=== PATIENT | female | born 1945 | race Caucasian/White ===

== ENCOUNTER 2020-02-09 00:59 | Outpatient (CLI) | payer MEDICARE, BC, SELFPAY ==
[2020-02-09 18:04] LABS: SARS-CoV-2 RNA PCR Negative
== END 2020-02-09 01:00 | disposition home or self-care (01) ==
LOC: ANHCOVIDDT 00:59
PROVIDERS: PCP Internal Medicine; Visit Provider Internal Medicine Gastroenterology
DX: Z01.812 Encounter for preprocedural laboratory examination (principal); Z20.828 Contact with and (suspected) exposure to other viral communicable diseases
CPT/HCPCS: 87635; C9803; U0003

== ENCOUNTER 2020-02-12 00:42 | Day surgery (SDC) | payer MEDICARE, BC, SELFPAY ==
[2020-02-05 14:51] VITALS: BMI 30.9
[2020-02-12 06:58] VITALS: BP 155/78; PULSE 87; RESP 12; TEMP 36.8; O2SAT 99; BMI 31.7
[2020-02-12] MEDS: LACTATED RINGERS 1,000 ML 150 ML IV CONT (07:04)
[2020-02-12 07:05] LABS: Glucose Point of Care 129 (65-105)
--- NOTE | 2020-02-12 07:24 | PM.HPGS ---
History of Present Illness History of Present Illness Consent: Risks, benefits, and alternatives have been discussed and questions answered. Patient agrees to proceed with procedure. Chief complaint: Neoplasm Screening Narrative: Vera Olivares is a 74 year old female Here for colon cancer screening. [facility] Past Medical History Medical History (Updated 02/12/20 @ 07:26 by Lopez Bergman MD) CAD (coronary artery disease) had cath done, no blockages Diabetes Hyperlipidemia Hypertension Hypothyroid Social History Social History Smoking status: Never smoker Alcohol intake: current Drinks per week: 0 Alcohol use details: 1 OR 2 DRINKS PER YEAR Substance use: never Substance use type: does not use Spiritual care concerns: No Meds Home Medications and Allergies Home Medications Medication Instructions Recorded Confirmed Type ascorbate calcium (vitamin C) 500 mg PO DAILY 02/05/20 02/12/20 History aspirin [Adult Low Dose Aspirin] 81 mg PO DAILY 02/05/20 02/12/20 History calcium carbonate [Caltrate 600] 600 mg PO DAILY 02/05/20 02/12/20 History cholecalciferol (vitamin D3) 50 mcg PO DAILY 02/05/20 02/12/20 History [Vitamin D3] glimepiride 4 mg PO DAILY 02/05/20 02/12/20 History levothyroxine 75 mcg PO DAILY 02/05/20 02/12/20 History lisinopril 40 mg PO DAILY 02/05/20 02/12/20 History metformin 1,000 mg PO BID 02/05/20 02/12/20 History pqhhcjcc-moa-pcee-FA-lutein 1 tablet PO DAILY 02/05/20 02/12/20 History [Centrum Silver Women] pravastatin 80 mg PO HS 02/05/20 02/12/20 History Allergies Allergy/AdvReac Type Severity Reaction Status Date / Time ibuprofen Allergy Mild INCREASE Verified 02/12/20 06:56 KIDNEY LEVELS Vital Signs Vital Signs - 24 hr 02/12/20 06:58 Temperature 36.8 C Pulse Rate 87 Respiratory Rate 12 Blood Pressure 155/78 H Pulse Oximetry 99 Exam Resp: Auscultation: clear to auscultation bilaterally Cardio: Rate: regular rate Rhythm: regular rhythm GI: GI Palp: Yes Soft to palpation and No Tenderness to palpation present (GI) Assessment and Plan Assessment and plan (1) Colon cancer screening: Code(s): Z12.11 - Encounter for screening for malignant neoplasm of colon Status: Acute Assessment and Plan: Colonoscopy with possible biopsy or polypectomy or cautery or injection of substances.
--- NOTE | 2020-02-12 07:25 | WPDANESEPPF ---
Anes - Initial Pre Proc Eval Procedure: Operation Date: 02/12/20 08:00 Proposed Procedures p Screening Colonoscopy - Lopez Bergman MD Date/Time: 02/12/20 07:25 Surgeon: Lopez Bergman MD Pre Op Diagnosis: Neoplasm Screening Patient Data Age: 74 Gender: F Height: 5 ft 4 in Weight: 83.8 kg Last Vital Signs Temp 98.2 F 02/12/20 06:58 Pulse 87 02/12/20 06:58 Resp 12 02/12/20 06:58 BP 155/78 H 02/12/20 06:58 Pulse Ox 99 02/12/20 06:58 Allergies Allergy/AdvReac Type Severity Reaction Status Date / Time ibuprofen Allergy Mild INCREASE Verified 02/12/20 06:56 KIDNEY LEVELS Home Medications Medication Instructions Recorded Confirmed Type ascorbate calcium (vitamin C) 500 mg PO DAILY 02/05/20 02/12/20 History aspirin [Adult Low Dose Aspirin] 81 mg PO DAILY 02/05/20 02/12/20 History calcium carbonate [Caltrate 600] 600 mg PO DAILY 02/05/20 02/12/20 History cholecalciferol (vitamin D3) 50 mcg PO DAILY 02/05/20 02/12/20 History [Vitamin D3] glimepiride 4 mg PO DAILY 02/05/20 02/12/20 History levothyroxine 75 mcg PO DAILY 02/05/20 02/12/20 History lisinopril 40 mg PO DAILY 02/05/20 02/12/20 History metformin 1,000 mg PO BID 02/05/20 02/12/20 History qrjrrkos-nla-sgwr-FA-lutein 1 tablet PO DAILY 02/05/20 02/12/20 History [Centrum Silver Women] pravastatin 80 mg PO HS 02/05/20 02/12/20 History Laboratory Tests 02/12/20 06:55 POC Capillary Glucose 129 mg/dl H mg/dl (65-105) Patient hx anesthesia problems: none Family hx anesthesia problems: none PMFSH Past Medical History Medical History (Updated 02/12/20 @ 07:26 by Lopez Bergman MD) CAD (coronary artery disease) had cath done, no blockages Diabetes Hyperlipidemia Hypertension Hypothyroid Social History Social History Smoking status: Never smoker Alcohol intake: current Drinks per week: 0 Alcohol use details: 1 OR 2 DRINKS PER YEAR Substance use: never Substance use type: does not use Spiritual care concerns: No Anes - Eval Final PreProcedure Day of Procedure 02/12/20 07:25 Patient weight: overweight Heart: regular rate and rhythm Lungs: clear to auscultation Airway: Mallampati scale class II Neurological: alert and oriented Last oral intake: >/= 8 hours ASA classification: III Emergent: no Anesthetic plan: proceed Anesthesia type and monitoring: general GIVS and standard monitoring Informed Consent: The patient's anesthetic plan and its attendant risks and benefits were discussed with the patient/family/POA. Questions were solicited and answers provided to the satisfaction of the patient/family/POA.
[2020-02-12 08:08] VITALS: BP 106/51; PULSE 76; RESP 27; O2SAT 98
[2020-02-12 08:18] VITALS: BP 131/66; PULSE 76; RESP 26; O2SAT 98
[2020-02-12 08:28] VITALS: BP 134/65; PULSE 83; RESP 20; O2SAT 98
== END 2020-02-12 08:41 | disposition home or self-care (01) ==
PROVIDERS: PCP Internal Medicine; Visit Provider Internal Medicine Gastroenterology
PROC: 0DJD8ZZ Inspection of Lower Intestinal Tract, Via Natural or Artificial Opening Endoscopic (ICD-10-PCS; CPT 45378; principal; 2020-02-12 08:00)
DX: Z12.11 Encounter for screening for malignant neoplasm of colon (principal); K57.30 Diverticulosis of large intestine without perforation or abscess without bleeding; I10 Essential (primary) hypertension; I25.10 Atherosclerotic heart disease of native coronary artery without angina pectoris; E78.5 Hyperlipidemia, unspecified; E11.9 Type 2 diabetes mellitus without complications; E03.9 Hypothyroidism, unspecified; Z79.82 Long term (current) use of aspirin; Z79.84 Long term (current) use of oral hypoglycemic drugs
CPT/HCPCS: G0121; J2704; J7120

== ENCOUNTER 2023-06-22 07:36 | Outpatient (CLI) | payer MEDICARE, BC, SELFPAY ==
--- NOTE | ~2023-06-22 | DEXA_ITS ---
Bone Density Report Name: TAMMI NAJERA Age: 77 Sex: Female Ethnicity: White Date of : 1945 Indication: postmenopausal; screening for osteoporosis; height loss; end stage renal disease; hysterectomy; Referring Provider: SUSAN WALLACE Study: Bone densitometry was performed. Exam Date: June 22, 2023 Accession number: [id number] Bone Density: Region BMD T-score Z-score Classification AP Spine(L1-L4) 1.219 1.6 4.1 Normal Femoral Neck (Left) 0.616 -2.1 0.1 Osteopenia Total Hip (Left) 0.737 -1.7 0.2 Osteopenia Femoral Neck (Right) 0.663 -1.7 0.5 Osteopenia Total Hip (Right) 0.765 -1.4 0.4 Osteopenia Total Hip Mean 0.751 -1.6 0.3 Osteopenia World Health Organization criteria for BMD impression classify patients as: Normal (T-score at or above -1.0), Osteopenia (T-score between -1.0 and -2.5), or Osteoporosis (T-score at or below -2.5). 10-year Fracture Risk: FRAX not reported because: Treated for osteoporosis Clinical Information Provided by Patient: Is being treated for osteoporosis Has used the following medications: Fosamax (i.e. alendronate), Vitamin D Has the following medical conditions: End stage renal disease, Hysterectomy Patient maximum height was 66 Menopause Age: 52 No regular weight bearing exercise Drinks caffeinated beverages Onset of menses at age 14 Number of children 2 Impression: The patient has low bone mass, based on the Left Femoral Neck T-score. Discussion: It is important to ask patients whether they are taking their medications and to encourage continued and appropriate compliance with their osteoporosis therapies to reduce fracture risk. It is also important to review their risk factors and encourage appropriate calcium and vitamin D intakes, exercise, fall prevention and other lifestyle measures. Follow-Up: Consider a repeat BMD and Vertebral Fracture Assessment (VFA) exam in 2 years or sooner if medically necessary, to reassess this patient's status. Reported by: MILLY on 06/22/2023 8:03:00 AM. Reviewed, dictated and finalized at location [facility]
== END 2023-06-22 07:37 | disposition home or self-care (01) ==
PROVIDERS: PCP Internal Medicine; Visit Provider Obstetrics & Gynecology
DX: M85.89 Other specified disorders of bone density and structure, multiple sites (principal); M81.0 Age-related osteoporosis without current pathological fracture; Z13.820 Encounter for screening for osteoporosis
CPT/HCPCS: 77080

== ENCOUNTER 2024-01-02 13:50 | Outpatient (CLI) | payer MEDICARE, BC, SELFPAY ==
--- NOTE | 2024-01-02 15:15 | ECG_ITS ---
Test Date: 2024-01-02 15:46:12 Measurements Intervals [place] Rate: 72 P: 74 IA: 153 QRS: -8 QRSD: 91 T: 11 QT: 390 QTc: 427 Interpretive Statements SINUS RHYTHM BORDERLINE T WAVE ABNORMALITY- INFERIOR LEADS BASELINE ARTIFACT- I, II, III, AVR, AVL, AVF, V1-V6 BORDERLINE ECG No previous ECG available for comparison Electronically Signed On 01-02-2024 20:01:04 CDT by Colton Joseph D.O.
[2024-01-02 16:19] LABS: Basophils Percent Auto 0.5 % (0.2-1.2); Eosinophils Absolute Auto 0.2 K/mm3 (0-0.3); Eosinophils Percent Auto 2.4 % (0-4.4); Hematocrit 42.2 % (37.0-47.0); Hemoglobin 13.3 g/dL (12.0-15.0); Immature Granulocyte Absolute 0.01 K/mm3 (0.00-0.031); Immature Granulocyte Percent A 0.2 % (0-0.5); Lymphocytes Absolute Auto 2.54 K/mm3 (0.9-3.2); Lymphocytes Percent Auto 38.5 % (18.3-44.2); Mean Corpuscular HGB Conc 31.5 g/dl (32-36); Mean Corpuscular Hemoglobin 30.6 pg (26-34); Mean Platelet Volume 9.3 fl (7.4-10.4); Monocytes Absolute Auto 0.5 K/mm3 (0.1-0.6); Monocytes Percent Auto 7.4 % (2.6-8.5); Neutrophils Absolute Auto 3.4 K/mm3 (1.3-6.7); Platelet Count Result 208 k/mm3 (150-375); Red Blood Count 4.35 M/mm3 (4.2-5.4); Red Cell Distribution Width 12.8 % (11.5-14.5); White Blood Count 6.6 K/mm3 (4.5-10.0)
[2024-01-02 16:27] LABS: Urine Cotinine NEGATIVE
[2024-01-02 16:32] LABS: Albumin Level 4.6 g/dL (3.5-5.1); Anion Gap 12 mmol/L (4-12); Blood Urea Nitrogen 26 mg/dL (7-17); Calcium 9.8 mg/dL (8.4-10.2); Carbon Dioxide 26 mmol/L (22-30); Chloride 103 mmol/L (98-107); Estimated Glomerular Filt Rate 44; Glucose 98 mg/dL (65-110); Potassium 4.5 mmol/L (3.4-5.0); Sodium 141 mmol/L (137-145)
[2024-01-02 16:36] LABS: INR 0.9; Prothrombin Time 12.6 Seconds (11.1-14.7)
[2024-01-02 16:37] LABS: Partial Thromboplastin Time 25.5 Seconds (22.3-36.8)
[2024-01-02 18:18] LABS: Hemoglobin A1C 6.3 % (<5.7)
== END 2024-01-02 13:51 | disposition home or self-care (01) ==
PROVIDERS: Anesthesiology; PCP Internal Medicine; Visit Provider Orthopaedic Surgery
DX: M17.11 Unilateral primary osteoarthritis, right knee (principal); N18.30 Chronic kidney disease, stage 3 unspecified; Z01.818 Encounter for other preprocedural examination; R94.31 Abnormal electrocardiogram [ECG] [EKG]
CPT/HCPCS: 36415; 80048; 80307; 82040; 83036; 85025; 85610; 85730; 87081; 87181; 93005

== ENCOUNTER 2024-01-16 09:42 | Outpatient (CLI) | payer MEDICARE, BC, SELFPAY ==
--- NOTE | ~2024-01-16 | MR_ITS ---
MRI of the right foot Clinical history: Pain TECHNIQUE: Axial proton-density and proton-density fat-sat images, sagittal T1-weighted and STIR imag es, and coronal T1-weighted and proton-density fat-sat images were performed. FINDINGS: There is extensive marrow edema of the fourth metatarsal shaft and distal head. No definite discrete fracture line identified. There is focal moderate to high-grade degenerative change at the second metatarsophalangeal joint. There is moderate degenerative change of the first metatarsophalang eal joint. There is mild edema of the medial hallux sesamoid. Remaining joint spaces are relatively w ell-preserved. Visualized flexor and extensor tendons are intact. Intrinsic musculature of the foot is intact. Lisfr anc ligament appears intact. There is mild degenerative change of the tarsometatarsal joints. No soft tissue mass or fluid collection seen. IMPRESSION: Extensive marrow edema of the fourth metatarsal shaft and head without discrete fracture line. Findin gs could reflect severe stress response/impending stress fracture versus bone contusion. Degenerative changes, as above. Reviewed, dictated and finalized at location . IMPRESSION: Extensive marrow edema of the fourth metatarsal shaft and head without discrete fracture line. Findings could reflect severe stress response/impending stress fracture versus bone contusion. Degenerative changes, as above.
== END 2024-01-16 09:43 | disposition home or self-care (01) ==
LOC: GOSHIMG 09:44
PROVIDERS: PCP Internal Medicine; Visit Provider Physician Assistant Surgical
DX: R60.9 Edema, unspecified (principal); M19.071 Primary osteoarthritis, right ankle and foot
CPT/HCPCS: 73718

== ENCOUNTER 2024-02-03 13:44 | Outpatient (CLI) | payer MEDICARE, BC, SELFPAY | END 2024-02-03 13:45 | disposition home or self-care (01) | PROVIDERS: PCP Internal Medicine; Visit Provider Orthopaedic Surgery | DX: Z01.812 Encounter for preprocedural laboratory examination (principal); M17.11 Unilateral primary osteoarthritis, right knee | CPT/HCPCS: 36415; 86850; 86900; 86901 ==

== ENCOUNTER 2024-02-09 00:53 | Day surgery (SDC) | payer MEDICARE, BC, SELFPAY ==
[2024-01-02 14:28] VITALS: BP 155/74; PULSE 73; RESP 16; TEMP 36.6; O2SAT 99; BMI 27.8
--- NOTE | 2024-01-02 14:55 | PC.NURSE ---
Report to the Outpatient Waiting Room, entrance under the green pavilion located off [facility], at time _6:00AM_ on date _01/23/24_. Planned Procedure Time: _7:30AM_.? Time changes happen often and if your time is changed the preop area will call you the afternoon before. - You and your visitor will be asked to self-screen and do not enter if you have any COVID symptoms. Please call surgeon if you need to reschedule. - A mask is optional within the hospital at this time. Patients may have clear liquids (water, carbonated beverages, clear teas, apple juice) until 3 hours prior to surgery with a maximum of 20 ounces. - No food from midnight until time of surgery and no smoking. Take only the following medications with a SIP of water on the morning of surgery: ___LEVOTHYROXINE DO NOT STOP ANY OF YOUR OTHER PRESCRIPTION MEDICATIONS PRIOR TO SURGERY EXCEPT THE FOLLOWING Medications to discontinue per physician ___HOLD ALL VITAMINS/SUPPLEMENTS 3 DAYS PRE-OP Date to take last dose 01/19/24 Please no make-up, nail comoran, hairspray, perfume, deodorant, or body powder the day of surgery.? No jewelry (including any body piercings) or valuables the day of surgery, leave them at home.? Please take a shower or bath the night before, or the morning of, surgery with an antibacterial soap.? Wear comfortable, loose fitting clothing.? - Jewelry must be removed prior to entering the operating room.? Rings and piercings that are not removed may be cut off. - The hospital will not accept responsibility for valuables.? - Please leave all valuables, including medications, at home the day of surgery. If you are going home after surgery, a licensed p d driver must drive you home.? - NO public transportation without another adult if you receive anesthesia. - We recommend that an adult stay with you for 24 hours following discharge. - We also recommend that you do not drive, make important decision, drink alcoholic beverages, or take any drugs that were not prescribed by your health care provider for at least 24 hours after your discharge time. Follow any additional instructions given to you from your surgeon. Telephone instructions given to ____PATIENT and asked if any additional questions and then verbalized understanding. Patient advised to call surgeon office or pre surgery nurse liaison [phone] if any additional questions.
--- NOTE | 2024-02-02 09:19 | PC.NURSE ---
RESCHEDULED FROM 01/23/24, SURGEON UNAVAILABLE. Report to the Outpatient Waiting Room, entrance under the green pavilion located off [facility], at time ___6:00AM____ on date ___02/09/24____. Planned Procedure Time: ___7:30AM .? Time changes happen often and if your time is changed the preop area will call you the afternoon before. - You and your visitor will be asked to self-screen and do not enter if you have any COVID symptoms. Please call surgeon if you need to reschedule. - A mask is optional within the hospital at this time. Patients may have clear liquids (water, carbonated beverages, clear teas, apple juice) until 4:30AM -3 hours prior to surgery with a maximum of 20 ounces. - No food from midnight until time of surgery and no smoking. Take only the following medications with a SIP of water on the morning of surgery: ____LEVOTHYROXINE DO NOT STOP ANY OF YOUR OTHER PRESCRIPTION MEDICATIONS PRIOR TO SURGERY EXCEPT THE FOLLOWING Medications to discontinue per physician ___HOLD ALL VITAMINS/SUPPLEMENTS 3 DAYS PRE-OP PER ANESTHESIA Date to take last dose 02/05/24 Please no make-up, nail welsh, hairspray, perfume, deodorant, or body powder the day of surgery.? No jewelry (including any body piercings) or valuables the day of surgery, leave them at home.? Please take a shower or bath the night before, or the morning of, surgery with an antibacterial soap.? Wear comfortable, loose fitting clothing.? - Jewelry must be removed prior to entering the operating room.? Rings and piercings that are not removed may be cut off. - The hospital will not accept responsibility for valuables.? - Please leave all valuables, including medications, at home the day of surgery. If you are going home after surgery, a licensed charter and tour bus driver must drive you home.? - NO public transportation without another adult if you receive anesthesia. - We recommend that an adult stay with you for 24 hours following discharge. - We also recommend that you do not drive, make important decision, drink alcoholic beverages, or take any drugs that were not prescribed by your health care provider for at least 24 hours after your discharge time. Follow any additional instructions given to you from your surgeon. HIBICLENS SHOWER PER DR CLEARY. MUPIROCIN OINTMENT TO NOSTRILS X2/DAY FOR 5 DAYS PRIOR TO SURGERY. Telephone instructions given to ____PATIENT and asked if any additional questions and then verbalized understanding. Patient advised to call surgeon office or pre surgery nurse liaison [phone] if any additional questions.
--- NOTE | 2024-02-08 07:46 | P.HP_ITS ---
H&P: HPI History of Present Illness Date/Time: 02/08/24 07:46 Chief Complaint: Right knee DJD Narrative: 78-year-old female patient of Dr. Tatum who presents today for a right total knee arthroplasty. Patient has been having symptoms in her knee for years. At this point she is having rather severe pain on a daily basis. She has been getting cortisone injections in the knee, last injection was well over 5 months ago which gave her no relief. She is unable to take anti-inflammatories due to chronic kidney disease. She does take Tylenol which does not seem to help. At this point pain in the knee is causing her to limp. It is affecting her daily life. Patient does still work in finding it difficult to do that because of the knee. She feels this point she would like to proceed with total knee arth roplasty rather than continue nonsurgical treatment. Review of Systems Review of Systems: All systems reviewed & are unremarkable except as noted in HPI and below PMFSH Past Medical History Medical History CAD (coronary artery disease) had cath done, no blockages Diabetes Hyperlipidemia Hypertension Hypothyroid Surgical History Surgical History History of bladder surgery History of hysterectomy History of surgery on left wrist History of tubal ligation Family History Family History Mother Dementia Father Lung cancer Social History Social History Smoking status: Never smoker Second hand tobacco smoke exposure: Yes Alcohol intake: current Drinks per week: 0 Alcohol use details: 1 OR 2 DRINKS PER YEAR Substance use: never Substance use type: does not use Do You Feel Safe in your Home?: Yes Lack of Transportation: No Lack of Food: Never True Current Housing: I Have Housing Concerned About Future Housing: No Difficulty Paying Gas/Electric Bills: No Difficulty Paying for Meds: No Currently Unemployed: No Education: High School Diploma/GED Difficulty w/ Childcare or Family Care: No Living arrangements: with family Additional living arrangements comments: DAUGHTER LIVES WITH PATIENT Occupation/Education: retired Additional occupation/education comments: still works [employer] work-[employer] Gender identity (if verbalized by the patient): Female Spiritual care concerns: No Meds Home Medications and Allergies Home Medications Medication Instructions Recorded Confirmed Type levothyroxine 75 mcg tablet 75 mcg PO DAILY 02/05/20 02/02/24 History metformin 1,000 mg tablet 1,000 mg PO BID 02/05/20 02/02/24 History gtbntohk-cpsm-wmzl 8 mg-folic 400 1 tablet PO DAILY 02/05/20 02/02/24 History mcg-K 50 mcg-lutein 300 mcg tablet (Centrum Silver Women) pravastatin 40 mg tablet 80 mg PO HS 02/05/20 02/02/24 History alendronate 35 mg tablet 35 mg PO WEEKLY 09/07/23 02/02/24 History dapagliflozin propanediol 10 mg 10 mg PO DAILY 09/07/23 02/02/24 History tablet (Farxiga) glimepiride 2 mg tablet 2 mg PO QAM 09/07/23 02/02/24 History lisinopril 20 mg tablet 20 mg PO DAILY 09/07/23 02/02/24 History magnesium 250 mg tablet 250 mg PO DAILY 09/07/23 02/02/24 History Orogono Collagen 1 tbsp PO BID 01/02/24 02/02/24 History ascorbic acid (vitamin C) 1,000 mg 1 g PO HS 01/02/24 02/02/24 History capsule calcium 600 mg (as 1 tablet PO DAILY 01/02/24 02/02/24 History carbonate)-vitamin D3 5 mcg (200 unit) tablet mupirocin 2 % topical ointment 1 applic topical BID #22 grams 01/30/24 02/02/24 Rx Allergies Allergy/AdvReac Type Severity Reaction Status Date / Time ibuprofen AdvReac Mild AVOID R/T Verified 02/02/24 09:11 DECREASED KIDNEY FUNCTION Exam Narrative: 78-year-old female alert pleasant. She is 5 ft 4 and 163 lb BMI is 27.5. She walks with a minimal limp. Right knee has a mild effusion. Range of motion is from 3-120 degrees. Moderate tenderness over the medial joint line to palpation. Hip range of motion is full without discomfort, negative Stinchfield maneuver. Normal quad strength. She has normal sensation to light touch to both lower extremities. 2+ dorsalis pedis and posterior artery pulse palpable. No edema in lower extremities. Resp: Auscultation: clear to auscultation bilaterally Cardio: Rate: regular rate Rhythm: regular rhythm Assessment and Plan Assessment and plan (1) Primary osteoarthritis of right knee: Code(s): M17.11 - Unilateral primary osteoarthritis, right knee Status: Acute Assessment and Plan: 78-year-old female who has severe medial compartment osteoarthritis with continued symptoms. She feels this point she is ready to proceed with total knee arthroplasty. Surgical procedures well as the risks and complications were discussed in detail all questions were answered we will proceed. Patient will see her primary care doctor for pre-surgical clearance. Patient's hemoglobin is 13.3 and this is 208. Chem panel BUN and was 26 and creatinine is 1.2. GFR was 44. Patient did grow oxacillin sensitive Staph aureus on her nasal swab and has been Decolonizing.
--- NOTE | 2024-02-08 14:47 | P.PNAN_ITS ---
Anes - Initial Pre Proc Eval Procedure: Operation Date: 02/09/24 07:30 Proposed Procedures p Right Total Knee Arthroplasty - Coy Patel MD Date/Time: 02/08/24 14:47 Surgeon: Coy Patel MD Pre Op Diagnosis: O A Rt Knee Patient Data Age: 78 Gender: F Height: 1.63 m Weight: 73.7 kg Last Vital Signs Temp 97.9 F 01/02/24 14:28 Pulse 73 01/02/24 14:28 Resp 16 01/02/24 14:28 BP 155/74 H 01/02/24 14:28 Pulse Ox 99 01/02/24 14:28 Allergies Allergy/AdvReac Type Severity Reaction Status Date / Time ibuprofen AdvReac Mild AVOID R/T Verified 02/09/24 06:46 DECREASED KIDNEY FUNCTION Home Medications Medication Instructions Recorded Confirmed Type levothyroxine 75 mcg tablet 75 mcg PO DAILY 02/05/20 02/09/24 History metformin 1,000 mg tablet 1,000 mg PO BID 02/05/20 02/02/24 History lgiesgzy-rdxo-vkbb 8 mg-folic 400 1 tablet PO DAILY 02/05/20 02/09/24 History mcg-K 50 mcg-lutein 300 mcg tablet (Centrum [place] Women) pravastatin 40 mg tablet 80 mg PO HS 02/05/20 02/02/24 History alendronate 35 mg tablet 35 mg PO WEEKLY 09/07/23 02/02/24 History dapagliflozin propanediol 10 mg 10 mg PO DAILY 09/07/23 02/02/24 History tablet (Farxiga) glimepiride 2 mg tablet 2 mg PO QAM 09/07/23 02/02/24 History lisinopril 20 mg tablet 20 mg PO DAILY 09/07/23 02/02/24 History magnesium 250 mg tablet 250 mg PO DAILY 09/07/23 02/09/24 History Orogono Collagen 1 tbsp PO BID 01/02/24 02/09/24 History ascorbic acid (vitamin C) 1,000 mg 1 g PO HS 01/02/24 02/09/24 History capsule calcium 600 mg (as 1 tablet PO DAILY 01/02/24 02/09/24 History carbonate)-vitamin D3 5 mcg (200 unit) tablet mupirocin 2 % topical ointment 1 applic topical BID #22 grams 01/30/24 02/02/24 Rx Patient hx anesthesia problems: none Family hx anesthesia problems: none Results Review: All pre-operative results and documents have been reviewed as part of the pre-operative evaluation. [facility] Past Medical History Medical History CAD (coronary artery disease) had cath done, no blockages Diabetes Hyperlipidemia Hypertension Hypothyroid Surgical History Surgical History History of bladder surgery History of hysterectomy History of surgery on left wrist History of tubal ligation Family History Family History Mother Dementia Father Lung cancer Social History Social History Smoking status: Never smoker Second hand tobacco smoke exposure: Yes Alcohol intake: current Drinks per week: 0 Alcohol use details: 1 OR 2 DRINKS PER YEAR Substance use: never Substance use type: does not use Do You Feel Safe in your Home?: Yes Lack of Transportation: No Lack of Food: Never True Current Housing: I Have Housing Concerned About Future Housing: No Difficulty Paying Gas/Electric Bills: No Difficulty Paying for Meds: No Currently Unemployed: No Education: High School Diploma/GED Difficulty w/ Childcare or Family Care: No Living arrangements: with family Additional living arrangements comments: DAUGHTER LIVES WITH PATIENT Occupation/Education: retired Additional occupation/education comments: still works [employer] work-[employer] Gender identity (if verbalized by the patient): Female Spiritual care concerns: No Anes - Eval Final PreProcedure Day of Procedure 02/08/24 14:47 Patient weight: normal Heart: regular rate and rhythm Lungs: clear to auscultation Airway: Mallampati scale class II Neurological: alert and oriented Last oral intake: >/= 8 hours ASA classification: III Emergent: no Anesthetic plan: proceed Anesthesia type and monitoring: general ETT and standard monitoring Results Review: All pre-operative results and documents have been reviewed as part of the pre- operative evaluation. Informed Consent: The patient's anesthetic plan and its attendant risks and benefits were discussed with the patient/family/POA. Questions were solicited and answers provided to the satisfaction of the patient/family/POA.
[2024-02-09] VITALS (13 sets, daily range): BP systolic 120–149; BP diastolic 52–67; PULSE 79–97; RESP 14–20; TEMP 35.7–36.9; O2SAT 94–100; BMI 27.5
--- NOTE | ~2024-02-09 | XR_ITS ---
EXAMINATION: [id number] DATE: 02/09/2024 10:28 CDT INDICATION: Postoperative evaluation TECHNIQUE: 2 views right knee FINDINGS: There is a right total knee arthroplasty in expected position. Subcutaneous gas with fluid and air in the joint are consistent with recent surgery. No evidence of periprosthetic fracture. IMPRESSION: 1. Expected perioperative appearance of a right total knee arthroplasty, as detailed above. Reviewed, dictated and finalized at location A. IMPRESSION: 1. Expected perioperative appearance of a right total knee arthroplasty, as det corky above.
[2024-02-09] MEDS: LACTATED RINGERS 1,000 ML 30 ML IV CONT ×2 (06:25→10:24)
[2024-02-09 06:33] LABS: Glucose Point of Care 104 mg/dl (65-105)
[2024-02-09] MEDS: ACETAMINOPHEN 500 MG TABLET 1000 MG PO (06:36)
[2024-02-09] MEDS: VANCOMYCIN 1,250 MG/NS 250 ML BAG 166.67 MG IVPB (06:38)
[2024-02-09] MEDS: TRANEXAMIC ACID 1,000MG/ISO100 1,000 MG/100 ML BAG 200 MG IVPB (07:07)
--- NOTE | 2024-02-09 07:09 | WPDHPUPDATE1 ---
History and Physical Update Update Date/Time: 02/09/24 07:09 History and Physical has been reviewed, including an updated exam of the patient. There are NO changes in the patient's condition. Risks, benefits, and alternatives have been discussed and questions answered. Patient agrees to proceed with procedure.
[2024-02-09] MEDS: ceFAZolin 2 GM/D5W 50 ML 2 GM/50 ML BAG IVPB ×2 (07:32→18:00)
[2024-02-09] MEDS: SODIUM CHLORIDE 0.9% IV 38.7 ML, MORPHINE SULFATE INJ (*CRX) 2 MG, ROPivacaine HCL 1% 2... INFILTRATE (07:53)
[2024-02-09] MEDS: TRANEXAMIC ACID 1,000 MG/10 ML AMPUL 1000 MG IV PUSH (09:50)
[2024-02-09] MEDS: ceFAZolin SODIUM 1 GM VIAL 2 GM IV PUSH (09:53)
[2024-02-09 10:30] LABS: Glucose Point of Care 189 mg/dl (65-105)
--- NOTE | 2024-02-09 10:30 | PM.OP ---
Procedure Note - Brief Procedure Note - Brief Date of procedure: 02/09/24 O A Rt Knee Procedure performed: Right total knee arthroplasty Surgeon: VICTORINO Bingham Findings: 78-year-old female underwent right total knee arthroplasty on 02/08. I was involved in the procedure including positioning the patient on the OR table in 1st assisting through the time of surgery. Total time spent was 3 hours
[2024-02-09] MEDS: fentaNYL CITRATE INJ (*CRX) 100 MCG/2 ML VIAL 25 MCG IV PUSH ×4 (10:39→11:38)
--- NOTE | 2024-02-09 10:42 | W.PM.PROC2 ---
Procedure Note - Detailed Date of Procedure 02/09/24 Pre-op Diagnosis O A Rt Knee Post-op Diagnosis Same Procedure Performed Right total knee replacement Surgeon Coy Patel MD Hospice Admitting Clerk Tasneem Anesthesia General Description of Procedure Patient was brought to the operating room and general anesthesia was administered. The right leg was prepped draped usual fashion. Under anesthesia she had a positive bounce with a few degree flexion contracture. She received 2 g Ancef weight based vancomycin 1 g of TXA preoperatively. The right leg was prepped and draped usual fashion. Limb was exsanguinated tourniquet elevated to 250 mmHg. A 7 in longitudinal midline incision was used and a vastus medialis splitting approach utilized. Partial excision of infrapatellar fat pad performed quadriceps synovectomy carried out. The paddle patella had moderate chondromalacia but no areas of full-thickness wear or deformity. I felt it was suitable for non resurfacing. A minimal lateral facetectomy was performed. A guide cory was inserted on femoral canal after aspiration of canal contents using the 5 degree valgus cutting bushing 9 mm of bone removed from the distal femur. This removed approximately equal amounts medially and laterally due to wear medially. The tibial plateau was cut cutting 2 mm under the low point of medial tibial plateau where area. This will remnants were excised and the PCL was recessed. At 90? the knee had a flexion gap a medially of 7 mm and 9 mm laterally. Therefore an additional 2 mm of bone was removed from the tibial plateau. Alignment was confirmed. The flexion gap measured 9.5 and 11 mm respectively the laterally. The femoral sizing guide was applied set at 2? of external rotation which matched Whitesides line. Posterior referencing pinholes were placed. We applied the size 62.5 cutting block and showed this would notch. We went up to the 65 which was far too wide and we made the anterior cut. 2? of flexion were placed on the distal femoral cut we reapplied the size 62.5 cutting block and the anterior cut was made without notching. Posterior chamfer cuts were completed. The 62.5 fit line to line medial to lateral a good fit. The tibia was sized to a 67 which fit line to line posterolateral to anteromedial and was punched. We trialed with 67 insert and had appropriate stability in flexion with 1 mm lateral opening 1-2 mm of medial opening at 90? and gravity flexion to 140 but it had a barely positive bounce only 1 mm medial opening and lateral opening. An additional mm bone was removed the distal femur chamfer cuts revisited posterior femoral osteophytes removed and conservative central posterior capsular release carried out. On read trialing the knee came out to full extension with negative bounce 1-2 mm of medial and lateral opening in extension. Appropriate AP stability in all positions. With the arthrotomy towel clipped I could not feel play medially and the knee still came out to full extension with negative bounce and gravity flexion 135?. Lug holes were drilled in the femoral component. The bony surfaces were drilled with the step drill thoroughly irrigated and dried. Two batches of methylmethacrylate were mixed 1 with gentamicin powder and medially applied the 67 vanguard tibial tray and the size 62.5 right CR femoral component. Cement applied the tibial plateau pressurized tibial component fully seated cement applied the femur the femoral component fully seated the knee brought into extension with 11 mm 5 1 trial insert for pressurization tourniquet released at 90 minutes. After cement hardening excess cement was sought for removed hemostasis was achieved. The 10 was trialed we had the same exact stability findings as above. The 10 was placed without difficulty locked with a locking pin. Local anesthetic cocktail was injected in the amena articular soft tissues. Arthrotomy was closed with 2. Vicryl 1. Unidirectional barbed Stratafix suture of 1. Vicryl the split skin closed with 2 subcutaneous Vicryl 3-0 subcuticular Monocryl and glue EBL was 150. Two additional g of Ancef weight based vancomycin given his have wound closure. There were no complications she was transferred postop recovery room in stable condition. [facility] Billing Surgery - Charge Forward: Surgery Billing (Right total knee replacement)
[2024-02-09 12:49] LABS: Estimated CRCL calculation 32 ml/min; Estimated Glomerular Filt Rate 40
--- NOTE | 2024-02-09 13:00 | PM.IMCN ---
Assessment and Plan Assessment and plan (1) Primary osteoarthritis of right knee: Code(s): M17.11 - Unilateral primary osteoarthritis, right knee Status: Acute Assessment and Plan: status post right total knee arthroplasty performed by Dr. Patel today continue neurovascular checks continue pain and nausea control as needed continue incentive spirometry q.2 hours while awake PT and OT ordered full weight-bearing status Ortho following and we will defer anticoagulation to them, continue SCDs for now (2) Diabetes: Code(s): E11.9 - Type 2 diabetes mellitus without complications Status: Acute Assessment and Plan: Blood sugars ranging 104-180 Hgb A1C was 6.3 on 16 Accu checks AC/HS Mid dose SSI ordered hypoglycemic protocol in place Diabetic diet ordered Hold metformin, Farxiga, glimepiride (3) Hypothyroid: Code(s): E03.9 - Hypothyroidism, unspecified Status: Acute Assessment and Plan: continue Synthroid 75 mcg daily will check TSH in the morning (4) Hypertension: Code(s): I10 - Essential (primary) hypertension Status: Acute Assessment and Plan: blood pressures ranging 126/60 to 138/57 continue lisinopril 20 mg p.o. daily (5) Hyperlipidemia: Code(s): E78.5 - Hyperlipidemia, unspecified Status: Acute Assessment and Plan: continue pravastatin 80 mg p.o. at bedtime (6) Status post total right knee replacement: Code(s): Z96.651 - Presence of right artificial knee joint Status: Inactive HPI Date of Consult Consult date: 02/09/24 Requesting Physician: Coy Patel MD Primary Care Provider: Charles TatumMD Consult Narrative Narrative: Vera Olivares is a 78 year old female With a significant past medical history of coronary artery disease, diabetes, hyperlipidemia, hypertension, hypothyroidism who presented today for elective right total knee replacement with Dr. Patel. patient had a postop x-ray which showed expected perioperative appearance of a right total knee arthroplasty. We were consulted for medical management while inpatient. Patient reports nausea and vomited once while I was in the room with her. She denies any fever, chills, diarrhea, abdominal pain, chest pain, or shortness of breath. She was sitting on the side of the bed doing knee exercises with the physical therapist when she became nauseated. Review of Systems Review of Systems: All systems reviewed & are unremarkable except as noted in HPI and below Constitutional: Constitutional: Reports as per HPI and Reports no additional constitutional complaints Eyes: Eyes: Reports as per HPI and Reports no additional eye complaints ENT: Reports system reviewed and no additional complaints, except as documented and Reports as per HPI Cardiovascular: Cardiovascular: Reports as per HPI and Reports no additional cardiovascular complaints Respiratory: Respiratory: Reports as per HPI and Reports no additional respiratory complaints Gastrointestinal: Gastrointestinal: Reports as per HPI and Reports no additional gastrointestinal complaints Genitourinary: Genitourinary: Reports no additional female genitourinary complaints and Reports as per HPI Musculoskeletal: Musculoskeletal: Reports no additional musculoskeletal complaints and Reports as per HPI Integumentary/Breasts: Skin/Breast: Reports system reviewed and no additional complaints, except as docu and Reports as per HPI Neurologic: Reports system reviewed and no additional complaints, except as documented and Reports as per HPI Psychiatric: Psychiatric: Reports no additional psychiatric complaints and Reports as per HPI Endocrine: Endocrine: Reports no additional endocrine complaints and Reports as per HPI Hematologic/Lymphatic: Hematologic/Lymphatic: Reports no additional hematologic/lymphatic complaints and Reports as per HPI Allergic/Immunologic: Allergic/Immunologic: Reports no additional allergic/immunologic complaints and Reports as per HPI [facility] Past Medical History Medical History CAD (coronary artery disease) had cath done, no blockages Diabetes Hyperlipidemia Hypertension Hypothyroid Surgical History Surgical History (Updated 02/09/24 @ 14:58 by Lina Mcallister APRN) History of bladder surgery History of hysterectomy History of surgery on left wrist History of tubal ligation Status post total right knee replacement Family History Family History Mother Dementia Father Lung cancer Social History Social History Smoking status: Never smoker Second hand tobacco smoke exposure: Yes Alcohol intake: current Drinks per week: 0 Alcohol use details: 1 OR 2 DRINKS PER YEAR Substance use: never Substance use type: does not use Do You Feel Safe in your Home?: Yes Lack of Transportation: No Lack of Food: Never True Current Housing: I Have Housing Concerned About Future Housing: No Difficulty Paying Gas/Electric Bills: No Difficulty Paying for Meds: No Currently Unemployed: No Education: High School Diploma/GED Difficulty w/ Childcare or Family Care: No Living arrangements: with family Additional living arrangements comments: DAUGHTER LIVES WITH PATIENT Occupation/Education: retired Additional occupation/education comments: 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[employer] Gender identity (if verbalized by the patient): Female Spiritual care concerns: No Meds Home Medications and Allergies Home Medications Medication Instructions Recorded Confirmed Type levothyroxine 75 mcg tablet 75 mcg PO DAILY 02/05/20 02/09/24 History metformin 1,000 mg tablet 1,000 mg PO BID 02/05/20 02/02/24 History gfahugwo-nyrc-come 8 mg-folic 400 1 tablet PO DAILY 02/05/20 02/09/24 History mcg-K 50 mcg-lutein 300 mcg tablet (Centrum Silver Women) pravastatin 40 mg tablet 80 mg PO HS 02/05/20 02/02/24 History alendronate 35 mg tablet 35 mg PO WEEKLY 09/07/23 02/02/24 History dapagliflozin propanediol 10 mg 10 mg PO DAILY 09/07/23 02/02/24 History tablet (Farxiga) glimepiride 2 mg tablet 2 mg PO QAM 09/07/23 02/02/24 History lisinopril 20 mg tablet 20 mg PO DAILY 09/07/23 02/02/24 History magnesium 250 mg tablet 250 mg PO DAILY 09/07/23 02/09/24 History Orogono Collagen 1 tbsp PO BID 01/02/24 02/09/24 History ascorbic acid (vitamin C) 1,000 mg 1 g PO HS 01/02/24 02/09/24 History capsule calcium 600 mg (as 1 tablet PO DAILY 01/02/24 02/09/24 History carbonate)-vitamin D3 5 mcg (200 unit) tablet mupirocin 2 % topical ointment 1 applic topical BID #22 grams 01/30/24 02/02/24 Rx Allergies Allergy/AdvReac Type Severity Reaction Status Date / Time ibuprofen AdvReac Mild AVOID R/T Verified 02/09/24 06:46 DECREASED KIDNEY FUNCTION Vital Signs Vital Signs - 24 hr 02/09/24 05:55 02/09/24 10:24 02/09/24 10:40 Temperature 97.0 F L 98.5 F Pulse Rate 85 96 82 Respiratory Rate 14 16 18 Blood Pressure 149/67 H 145/67 H 132/63 Pulse Oximetry 100 99 99 Oxygen Delivery Room Air Simple Face Mask Simple Face Mask Oxygen Flow Rate 10 10 02/09/24 10:55 02/09/24 11:10 02/09/24 11:25 Temperature Pulse Rate 80 85 82 Respiratory Rate 18 18 18 Blood Pressure 134/66 130/66 132/66 Pulse Oximetry 100 96 94 Oxygen Delivery Simple Face Mask Room Air Room Air Oxygen Flow Rate 10 02/09/24 11:39 02/09/24 11:25 02/09/24 12:10 Temperature 96.5 F L 96.3 F L Pulse Rate 80 86 79 Respiratory Rate 16 16 18 Blood Pressure 128/66 138/57 L 129/56 L Pulse Oximetry 94 95 98 Oxygen Delivery Room Air Oxygen Flow Rate 02/09/24 12:40 Temperature 96.6 F L Pulse Rate 81 Respiratory Rate 18 Blood Pressure 126/60 Pulse Oximetry 98 Oxygen Delivery Oxygen Flow Rate Exam Narrative: General: In no acute distress, well nourished Head: atraumatic, no encephalopathy Eyes: EOMI, PERRLA, sclera clear ENT: moist mucous membranes, nasal passages clear Neck: supple, no JVD, no adenopathy, trachea midline Cardiac: Normal S1 and S2. RRR, No murmur, gallops or friction rubs, peripheral pulses intact. Respiratory: Lungs clear to auscultation, no adventitious lung sounds, currently on room air Gastrointestinal: soft, non-distended, non-tender, normoactive bowel sounds. Reports Nausea and vomiting : voiding without difficulty. Extremities: moves all extremities well, no edema, good ROM, strength 5/5 Skin: warm to the touch, diaphoretic. Right knee OR dressing clean,dry and intact. Surgical incision to right knee with internal sutures and surgical glue Neuro: Alert and oriented x4, cranial nerves intact, no neuro deficits. Psych: normal mood, normal affect, interactive Results Labs 02/09/24 12:33 Labs: BMP 02/09/24 12:33 Creatinine 1.30 H Quality VTE Prophylaxis VTE prophylaxis: mechanical ordered Hospitalist [facility] Advance Care Plan I have confirmed that the patient's Advanced Care Plan is present, code status is documented, or surrogate decision maker is listed in patient medical record.: Yes Medication Reconciliation I have utilized all available resources to obtain, update and review the patients current medications (includes all prescriptions, OTC, herbals, cannabis, and nutritional supplements).: Yes
[2024-02-09] MEDS: EMPAGLIFLOZIN 25 MG TABLET BY MOUTH (13:04)
[2024-02-09] MEDS: ACETAMINOPHEN 325 MG TABLET 650 MG PO ×3 (13:04→22:27)
[2024-02-09] MEDS: oxyCODONE HCL (*CRX) 5 MG TAB IR PO ×3 (13:04→22:27)
[2024-02-09] MEDS: SODIUM CHLORIDE 0.9% IV 1,000 ML 125 ML IV CONT (13:05)
[2024-02-09] MEDS: ONDANSETRON INJ 4 MG/2 ML VIAL IV PUSH ×3 (14:42→19:10)
[2024-02-09 17:17] LABS: Glucose Point of Care 238 mg/dl (65-105)
[2024-02-09] MEDS: SENNA/DOCUSATE SODIUM TABLET 2 TAB PO (17:26)
[2024-02-09] MEDS: INSULIN ASPART (*BKC) 100 UNITS/ML SUB-Q (17:27)
[2024-02-09] MEDS: MORPHINE SULFATE (*CRX) 2 MG/ML INJ IV PUSH (19:10)
[2024-02-09] MEDS: FAMOTIDINE 20 MG TABLET PO (20:24)
[2024-02-09] MEDS: PRAVASTATIN SODIUM 20 MG TABLET 80 MG PO (20:24)
[2024-02-09 20:38] LABS: Glucose Point of Care 159 mg/dl (65-105)
[2024-02-10] MEDS: ACETAMINOPHEN 325 MG TABLET 650 MG PO ×3 (02:22→10:18)
[2024-02-10] MEDS: ceFAZolin 2 GM/D5W 50 ML 2 GM/50 ML BAG IVPB ×2 (02:22→10:18)
[2024-02-10] MEDS: oxyCODONE HCL (*CRX) 5 MG TAB IR PO ×3 (02:22→10:18)
[2024-02-10] MEDS: ONDANSETRON INJ 4 MG/2 ML VIAL IV PUSH ×2 (04:17→08:49)
[2024-02-10 05:31] VITALS: BP 111/60; PULSE 82; RESP 18; TEMP 36.9; O2SAT 100
[2024-02-10] MEDS: LEVOTHYROXINE SODIUM 75 MCG TABLET PO (06:09)
[2024-02-10] MEDS: VANCOMYCIN 1,000 MG/NS 250 ML 1,000 MG/250 ML BAG 250 MG IVPB (06:10)
[2024-02-10 06:59] LABS: Basophils Percent Auto 0.3 % (0.2-1.2); Eosinophils Percent Auto 0.1 % (0-4.4); Hematocrit 38.1 % (37.0-47.0); Hemoglobin 11.8 g/dL (12.0-15.0); Immature Granulocyte Absolute 0.05 K/mm3 (0.00-0.031); Immature Granulocyte Percent A 0.5 % (0-0.5); Lymphocytes Absolute Auto 1.35 K/mm3 (0.9-3.2); Lymphocytes Percent Auto 12.8 % (18.3-44.2); Mean Corpuscular Hemoglobin 30.1 pg (26-34); Mean Corpuscular Volume 97.2 fl (80-100); Mean Platelet Volume 9.6 fl (7.4-10.4); Monocytes Absolute Auto 1.3 K/mm3 (0.1-0.6); Monocytes Percent Auto 12.7 % (2.6-8.5); Neutrophils Absolute Auto 7.8 K/mm3 (1.3-6.7); Neutrophils Percent Auto 73.6 % (45.5-73.1); Platelet Count Result 190 k/mm3 (150-375); Red Blood Count 3.92 M/mm3 (4.2-5.4); Red Cell Distribution Width 12.9 % (11.5-14.5); White Blood Count 10.6 K/mm3 (4.5-10.0)
[2024-02-10 07:19] LABS: Alanine Aminotransferase 16 U/L (6-35); Albumin Level 4.1 g/dL (3.5-5.1); Alkaline Phosphatase 65 U/L (38-126); Anion Gap 8 mmol/L (4-12); Aspartate Amino Transferase 27 U/L (14-36); Bilirubin,Total 0.5 mg/dL (0.2-1.3); Blood Urea Nitrogen 22 mg/dL (7-17); Calcium 8.6 mg/dL (8.4-10.2); Carbon Dioxide 24 mmol/L (22-30); Chloride 103 mmol/L (98-107); Estimated CRCL calculation 32 ml/min; Estimated Glomerular Filt Rate 40; Glucose 129 mg/dL (65-110); Potassium 4.9 mmol/L (3.4-5.0); Sodium 135 mmol/L (137-145)
--- NOTE | 2024-02-10 07:42 | PM.PNORT ---
Subjective Subjective Date/Time Seen: 02/10/24 07:42 Interval history: Postop day 1 patient is alert. She is afebrile vital signs stable. She is having a little bit nausea when she is getting a bit moving about. She was up yesterday walking physical therapy relatively comfortable. Soft tissue block is worn off she is having a little bit more discomfort this morning but is still tolerable. Going to give her dose of Decadron this morning to help not only with the pain but it should help with the nausea little bit as well. Patient has not eaten much since surgery which is probably contributing some to his nausea. Dressing is dry and intact. Neurovascularly she is intact. Morning labs are noted. Her creatinine has remained the same 1.3 which was preop. Overall patient is doing relatively well. She will work with Physical therapy this morning and if she continues to be doing well she will be discharged home later this morning. If she feels she needs additional therapy she will stay till this afternoon and once therapy is completed this afternoon she will be discharged at that point. Objective Data Vital Signs Vital Signs: Vital Signs - 24 hr 02/09/24 10:24 02/09/24 10:40 02/09/24 10:55 Temperature 98.5 F Pulse Rate 96 82 80 Respiratory Rate 16 18 18 Blood Pressure 145/67 H 132/63 134/66 Pulse Oximetry 99 99 100 Oxygen Delivery Simple Face Mask Simple Face Mask Simple Face Mask Oxygen Flow Rate 10 10 10 02/09/24 11:10 02/09/24 11:25 02/09/24 11:39 Temperature Pulse Rate 85 82 80 Respiratory Rate 18 18 16 Blood Pressure 130/66 132/66 128/66 Pulse Oximetry 96 94 94 Oxygen Delivery Room Air Room Air Room Air Oxygen Flow Rate 02/09/24 11:25 02/09/24 12:10 02/09/24 12:40 Temperature 96.5 F L 96.3 F L 96.6 F L Pulse Rate 86 79 81 Respiratory Rate 16 18 18 Blood Pressure 138/57 L 129/56 L 126/60 Pulse Oximetry 95 98 98 Oxygen Delivery Oxygen Flow Rate 02/09/24 14:30 02/09/24 20:46 02/09/24 20:00 Temperature 98.4 F Pulse Rate 82 Respiratory Rate 18 Blood Pressure 124/65 Pulse Oximetry 99 Oxygen Delivery Room Air Room Air Oxygen Flow Rate 02/09/24 23:55 02/10/24 05:31 Temperature 98.2 F 98.4 F Pulse Rate 80 82 Respiratory Rate 16 18 Blood Pressure 124/61 111/60 Pulse Oximetry 100 100 Oxygen Delivery Oxygen Flow Rate Intake/Output Intake/Output: Intake & Output 02/07/24 02/08/24 02/09/24 02/10/24 23:59 23:59 23:59 23:59 Intake Total 400 350 Balance 400 350 Meds/Results Medications: Active Medications Generic Name Dose Route Start Last Admin Trade Name Freq PRN Reason Stop Dose Admin Acetaminophen 650 mg 02/09/24 10:25 02/10/24 06:09 Acetaminophen 325 Mg Tablet PO 650 mg Q4H ZEINA Administration Apixaban 2.5 mg 02/10/24 09:00 Apixaban 2.5 Mg Tablet PO 02/21/24 21:01 Q12HR ZEINA Cephalexin HCl 500 mg 02/10/24 14:00 Cephalexin 500 Mg Capsule PO Q8H ZEINA Dexamethasone Sodium Phosphate 10 mg 02/10/24 07:40 Dexamethasone Sod Phos Inj 10 Mg/Ml 1 Ml Vial IV PUSH 02/10/24 07:41 ONCE ONE Dextrose 12.5 gm 02/09/24 13:46 Dextrose 50% 25 Gm/50 Ml Syringe IV PUSH PRN PRN Hypoglycemia Protocol Diphenhydramine HCl 25 mg 02/09/24 10:24 Diphenhydramine Hcl Inj 50 Mg/Ml Vial IV PUSH Q6H PRN Itching Empagliflozin 25 mg 02/09/24 11:55 02/09/24 13:04 Empagliflozin 25 Mg Tablet BY MOUTH 25 mg DAILY ZEINA Administration Famotidine 20 mg 02/09/24 21:00 02/09/24 20:24 Famotidine 20 Mg Tablet PO 20 mg Q12HR ZEINA Administration Fentanyl Citrate 25 mcg 02/08/24 14:47 02/09/24 11:38 Fentanyl Citrate Inj (*Crx) 100 Mcg/2 Ml Vial IV PUSH 25 mcg Q2M PRN Administration Pain Glimepiride 2 mg 02/10/24 09:00 Glimepiride 2 Mg Tablet PO QAM ZEINA Glucagon 1 mg 02/09/24 13:46 Glucagon For Inj 1 Mg Vial IM PRN PRN Hypoglycemia Protocol Glucose 15 gm 02/09/24 13:46 Glucose Oral Gel 15 Gm Of Glucse In 37.5 Gm Tube PO PRN PRN Hypoglycemia Protocol Lactated Ringer's 1,000 mls @ 30 mls/hr 02/08/24 14:50 02/09/24 12:50 Lr - Lactated Ringers Iv IV CONT Not Given .Q24H ZEINA Lactated Ringer's 1,000 mls @ 30 mls/hr 02/08/24 14:50 02/09/24 12:50 Lr - Lactated Ringers Iv IV CONT Not Given .Q24H ZEINA Cefazolin Sodium 2 gm in 50 mls @ 100 mls/hr 02/09/24 18:00 02/10/24 02:52 Ancef 2 Gm/D5w 50 Ml IVPB 02/10/24 10:29 Infused Q8H ZEINA Infusion Dextrose 1,000 mls @ 100 mls/hr 02/09/24 13:46 Dextrose 5% 1,000 Ml IVPB PRN PRN Hypoglycemia Protocol Insulin Aspart 3 - 6 units 02/09/24 17:00 02/09/24 17:27 Insulin Aspart (*Bkc) 100 Units/Ml SUB-Q 3 units TIDWM ZEINA Administration Protocol Insulin Aspart 1 - 3 units 02/09/24 21:00 02/09/24 20:20 Insulin Aspart (*Bkc) 100 Units/Ml SUB-Q Not Given HS [facility] Protocol Levothyroxine Sodium 75 mcg 02/10/24 06:30 02/10/24 06:09 Levothyroxine Sodium 75 Mcg Tablet PO 75 mcg DAILY@0630 ZEINA Administration Lisinopril 20 mg 02/10/24 09:00 Lisinopril 20 Mg Tablet PO DAILY [facility] Morphine Sulfate 2 mg 02/09/24 10:02/09/24 19:10 Morphine Sulfate (*Crx) 2 Mg/Ml Inj IV PUSH 2 mg Q2H PRN Administration Breakthrough Pain Rated 4-6 or NPO Naloxone HCl 0.1 mg 02/09/24 10:24 Naloxone Hcl 0.4 Mg/Ml Vial IV PUSH Q2M PRN Opiate Reversal Ondansetron HCl 4 mg 02/09/24 10:02/10/24 04:17 Ondansetron Inj 4 Mg/2 Ml Vial IV PUSH 4 mg Q4H PRN Administration Nausea And Vomiting Oxycodone HCl 5 mg 02/09/24 10:02/10/24 06:09 Oxycodone Hcl (*Crx) 5 Mg Tab Ir PO 5 mg Q4H ZEINA Administration Oxycodone HCl 5 mg 02/09/24 10:24 Oxycodone Hcl (*Crx) 5 Mg Tab Ir PO Q4H PRN Pain Rated 7-10 Polyethylene Glycol 17 gm 02/10/24 09:00 Polyethylene Glycol 3350 17 Gm Powd.Pack PO QAM ZEINA Pravastatin Sodium 80 mg 02/09/24 21:00 02/09/24 20:24 Pravastatin Sodium 20 Mg Tablet PO 80 mg HS ZEINA Administration Senna/Docusate Sodium 2 tab 02/09/24 17:00 02/09/24 17:26 Senna/Docusate Sodium Tablet PO 2 tab BID ZEINA Administration Radiology Results: ITS Impressions Knee X-Ray 02/09/24 10:28 IMPRESSION: 1. Expected perioperative appearance of a right total knee arthroplasty, as detailed above. Labs Labs: Laboratory Results - last 24 hr 02/09/24 02/09/24 02/09/24 10:28 12:33 16:40 WBC RBC Hgb Hct MCV MCH MCHC RDW Plt Count MPV Immature Gran % (Auto) Neut % (Auto) Lymph % (Auto) [place] % (Auto) Eos % (Auto) Baso % (Auto) Lymph # (Auto) [place] # (Auto) Eos # (Auto) Baso # (Auto) Abs Immat Gran (auto) Absolute Neuts (auto) Absolute Nucleated RBC Nucleated RBC % Sodium Potassium Chloride Carbon Dioxide Anion Gap BUN Creatinine 1.30 H Estim Creat Clear Calc 32 Estimated GFR 40 L Glucose POC Capillary Glucose 189 H 238 H Calcium Total Bilirubin AST ALT Alkaline Phosphatase Total Protein Albumin 02/09/24 02/10/24 20:03 06:23 WBC 10.6 H RBC 3.92 L Hgb 11.8 L Hct 38.1 MCV 97.2 MCH 30.1 MCHC 31.0 L RDW 12.9 Plt Count 190 MPV 9.6 Immature Gran % (Auto) 0.5 Neut % (Auto) 73.6 H Lymph % (Auto) 12.8 L [place] % (Auto) 12.7 H Eos % (Auto) 0.1 Baso % (Auto) 0.3 Lymph # (Auto) 1.35 [place] # (Auto) 1.3 H Eos # (Auto) 0.0 Baso # (Auto) 0.0 Abs Immat Gran (auto) 0.05 H Absolute Neuts (auto) 7.8 H Absolute Nucleated RBC 0.000 Nucleated RBC % 0.0 Sodium 135 L Potassium 4.9 Chloride 103 Carbon Dioxide 24 Anion Gap 8 BUN 22 H Creatinine 1.30 H Estim Creat Clear Calc 32 Estimated GFR 40 L Glucose 129 H POC Capillary Glucose 159 H Calcium 8.6 Total Bilirubin 0.5 AST 27 ALT 16 Alkaline Phosphatase 65 Total Protein 7.0 Albumin 4.1
--- NOTE | 2024-02-10 07:47 | P.DS_ITS ---
DS: Admitting Diagnosis Discharge Date 02/09 Admitting Diagnosis Right knee DJD DS: Discharge Diagnosis Discharge Diagnosis (1) Primary osteoarthritis of right knee: Code(s): M17.11 - Unilateral primary osteoarthritis, right knee Status: Acute DS: Summary Hospital Course Hospital Course: 78-year-old female who underwent right total knee arthroplasty on 02/08. Underwent the procedure without complications. Postoperatively she has been afebrile vital signs are stable. She was up walking with physical therapy the day of surgery was comfortable. She is having little bit nausea following surgery. She has some nausea the evening of surgery and the morning of postop day 1. No emesis. Patient is on Eliquis for DVT prophylaxis. Pain is well controlled with scheduled Tylenol every 4 hours as well as oxycodone 5 mg. She did receive an extra dose of Decadron the morning postop day 1 to help with pain but also with the nausea. Patient is on Keflex 500 mg t.i.d.. We have decreased this due to her elevated creatinine. We are not using any anti- inflammatories postoperatively because of her elevated creatinine. Patient is weight-bearing as tolerated. Morning of postop day 1 patient's dressing was dry and intact. Neurovascularly she is intact. She will be discharged home on 02/09. She was advised to keep leg elevated home prevent swelling but do her exercises on an hourly basis. She has outpatient therapy starting next Tuesday. She will also go home with Senokot and MiraLax. Patient was advised any questions or concerns she is to call the office. Time Spent with Patient Time attestation: Total time spent providing and/or coordinating discharge services: DS: Data Data Completed and Pending Labs on day of discharge: Labs from last 24 hours 02/10/24 02/09/24 02/09/24 06:23 20:03 16:40 WBC 10.6 H RBC 3.92 L Hgb 11.8 L Hct 38.1 MCV 97.2 MCH 30.1 MCHC 31.0 L RDW 12.9 Plt Count 190 MPV 9.6 Immature Gran % (Auto) 0.5 Neut % (Auto) 73.6 H Lymph % (Auto) 12.8 L [place] % (Auto) 12.7 H Eos % (Auto) 0.1 Baso % (Auto) 0.3 Lymph # (Auto) 1.35 [place] # (Auto) 1.3 H Eos # (Auto) 0.0 Baso # (Auto) 0.0 Abs Immat Gran (auto) 0.05 H Absolute Neuts (auto) 7.8 H Absolute Nucleated RBC 0.000 Nucleated RBC % 0.0 Sodium 135 L Potassium 4.9 Chloride 103 Carbon Dioxide 24 Anion Gap 8 BUN 22 H Creatinine 1.30 H Estim Creat Clear Calc 32 Estimated GFR 40 L Glucose 129 H POC Capillary Glucose 159 H 238 H Calcium 8.6 Total Bilirubin 0.5 AST 27 ALT 16 Alkaline Phosphatase 65 Total Protein 7.0 Albumin 4.1 TSH Pending 02/09/24 02/09/24 12:33 10:28 WBC RBC Hgb Hct MCV MCH MCHC RDW Plt Count MPV Immature Gran % (Auto) Neut % (Auto) Lymph % (Auto) [place] % (Auto) Eos % (Auto) Baso % (Auto) Lymph # (Auto) [place] # (Auto) Eos # (Auto) Baso # (Auto) Abs Immat Gran (auto) Absolute Neuts (auto) Absolute Nucleated RBC Nucleated RBC % Sodium Potassium Chloride Carbon Dioxide Anion Gap BUN Creatinine 1.30 H Estim Creat Clear Calc 32 Estimated GFR 40 L Glucose POC Capillary Glucose 189 H Calcium Total Bilirubin AST ALT Alkaline Phosphatase Total Protein Albumin TSH Discharge Plan Discharge Patient Disposition: Home, Self-Care Discharge Instructions: COY PATEL M.D [facility] [address] [place] [address] [address] [place] [address] POST-OPERATIVE DISCHARGE INSTRUCTIONS TOTAL KNEE ARTHROPLASTY 1. When resting, do not rest in the chair.When resting, lie on your back, with back flat on the couch or bed, with leg elevated above heart to minimize sw elling. You may put a pillow under your head. . Significant swelling could indicate a blood clot and if this occurs call the office (or go to the ER) to have a venous ultrasound. Therefore, do not rest in a chair. 2. At least five times a day spend several minutes stretching your knee into flexion while sitting in the chair and also stretching your knee out straight The abilities to bend your knee fully and straighten your knee fully are two most important knee functions to focus on during your recovery. 3. It is ok to sit in chair to eat, use the toilet and receive a guest and to do your stretching exercises, but, sitting in a chair will cause your leg to swell. Therefore, avoid additional time sitting in the chair. and don't rest in the chair. 4. Wound Care: Nursing will give you an additional Mepilex dressing at the time of discharge. Patient to remove the dressing and apply a new Mepilex dressing at home 7 days after surgery and leave the dressing on until seen in office. It is normal to see a small amount of blood on the silver pad of the Mepilex dressing. Its designed to hold small spots of blood. However, if the blood reaches the edge of the pad up to the boarder of the clear membrane that surrounds the pad, the pad is saturated and the Mepilex dressing should be removed and a new Mepilex dressing should be applied. 5. May shower with a Mepilex dressing in place.The water will run off the dressing. 6. Unless you are told otherwise, you may put full weight on your operated leg. Use a walker for balance and practice walking as normally as you can, ideally for a few minutes every hour while you are awake. 7. I would advise against putting ice packs on your knee incision. Ice constricts blood flow which can impar healing of the knee incision. IMPORTANT: Remember not to sit in the chair for more than 30 minutes at a time. As a rule, during the first 14 days after surgery, only sit in the chair to work on the chair knee bending stretch exercise, for meals or for use of the restroom. Sitting in the chair promotes significant swelling in the knee and leg which will make your knee stiff and more painful and which simulates having a blood clot in the veins of the leg. If this type of significant diffuse swelling occurs, an ultrasound at the hospital will be necessary to rule out a blood clot. Be up walking around with the walker for a few minutes every hour while awake and then rest laying on your back on the couch or in bed with your leg elevated on cushions or pillows. Do not rest in the chair. Patient Instructions: Apixaban (By mouth) Stand Alone Forms: General Discharge Instructions Follow-up/Referrals: Coy Patel MD [Physician] - Keep Reg. Scheduled Appt. Discharge Medications: New acetaminophen 325 mg Tablet 650 mg PO Q4H Qty: 90 0RF Eliquis 2.5 mg Tablet 2.5 mg PO Q12HR Qty: 28 0RF polyethylene glycol 3350 [Miralax] 17 gram Powder In Packet 17 g PO QAM Qty: 30 0RF sennosides-docusate sodium [Senokot-S] 8.6-50 mg Tablet 2 tab PO BID Qty: 60 0RF cephalexin 500 mg Capsule 500 mg PO Q8H Qty: 30 0RF oxycodone 5 mg Tablet 5 mg PO Q4H PRN (Reason: Pain Rated 7-10) Qty: 40 0RF ondansetron 4 mg tablet,disintegrating 4 mg PO Q8H PRN (Reason: nausea and vomiting) Qty: 20 0RF Continued glimepiride 2 mg tablet 2 mg PO QAM Rx Instructions: administer with breakfast lisinopril 20 mg tablet 20 mg PO DAILY Patient Comments: HS alendronate 35 mg tablet 35 mg PO WEEKLY Patient Comments: SUNDAYS dapagliflozin propanediol [Farxiga] 10 mg tablet 10 mg PO DAILY Patient Comments: QAM magnesium 250 mg tablet 250 mg PO DAILY calcium carbonate-vitamin D3 600 mg-5 mcg (200 unit) Tablet 1 tablet PO DAILY ascorbic acid (vitamin C) 1,000 mg Capsule 1 g PO HS Orogono Collagen 1 tbsp PO BID pravastatin 40 mg tablet 80 mg PO HS levothyroxine 75 mcg tablet 75 mcg PO DAILY Patient Comments: QAM metformin 1,000 mg tablet 1,000 mg PO BID Centrum Silver Women 8 mg iron-400 mcg-300 mcg Tablet 1 tablet PO DAILY Discontinued mupirocin 2 % ointment 1 applic topical BID Qty: 22 0RF Rx Instructions: Apply to both nares twice daily starting 5 days prior to surgery Attending physician on admission: Coy Patel
[2024-02-10 08:24] LABS: Glucose Point of Care 150 mg/dl (65-105)
[2024-02-10] MEDS: dexAMETHasone SOD PHOS INJ 10 MG/ML 1 ML VIAL IV PUSH (08:39)
[2024-02-10] MEDS: SENNA/DOCUSATE SODIUM TABLET 2 TAB PO (08:39)
[2024-02-10] MEDS: polyethylene glycoL 3350 17 GM POWD.PACK PO (08:40)
[2024-02-10] MEDS: FAMOTIDINE 20 MG TABLET PO (08:40)
[2024-02-10] MEDS: APIXABAN 2.5 MG TABLET PO (08:40)
[2024-02-10 10:24] VITALS: BP 117/58; PULSE 71; RESP 20; TEMP 36.1; O2SAT 99
--- NOTE | 2024-02-10 10:50 | PM.IMCN ---
Assessment and Plan Assessment and plan (1) Primary osteoarthritis of right knee: Code(s): M17.11 - Unilateral primary osteoarthritis, right knee Status: Acute Assessment and Plan: status post right total knee arthroplasty performed by Dr. Patel today continue neurovascular checks continue pain and nausea control as needed continue incentive spirometry q.2 hours while awake PT and OT ordered full weight-bearing status Ortho following and we will defer anticoagulation to them, continue SCDs for now (2) Diabetes: Code(s): E11.9 - Type 2 diabetes mellitus without complications Status: Acute Assessment and Plan: Blood sugars ranging 104-180 Hgb A1C was 6.3 on 16 Accu checks AC/HS Mid dose SSI ordered hypoglycemic protocol in place Diabetic diet ordered Hold metformin, Farxiga, glimepiride (3) Hypothyroid: Code(s): E03.9 - Hypothyroidism, unspecified Status: Acute Assessment and Plan: continue Synthroid 75 mcg daily will check TSH in the morning (4) Hypertension: Code(s): I10 - Essential (primary) hypertension Status: Acute Assessment and Plan: blood pressures ranging 126/60 to 138/57 continue lisinopril 20 mg p.o. daily (5) Hyperlipidemia: Code(s): E78.5 - Hyperlipidemia, unspecified Status: Acute Assessment and Plan: continue pravastatin 80 mg p.o. at bedtime (6) Status post total right knee replacement: Code(s): Z96.651 - Presence of right artificial knee joint Status: Inactive HPI Date of Consult Consult date: 02/10/24 Requesting Physician: Coy Patel MD Primary Care Provider: Charles TatumMD Consult Narrative Reason for consult: medical mngmnt Narrative: Vera Olivares is a 78 year old female Review of Systems Review of Systems: All systems reviewed & are unremarkable except as noted in HPI and below Constitutional: Constitutional: Reports as per HPI and Reports no additional constitutional complaints Eyes: Eyes: Reports as per HPI and Reports no additional eye complaints ENT: Reports system reviewed and no additional complaints, except as documented and Reports as per HPI Cardiovascular: Cardiovascular: Reports as per HPI and Reports no additional cardiovascular complaints Respiratory: Respiratory: Reports as per HPI and Reports no additional respiratory complaints Gastrointestinal: Gastrointestinal: Reports as per HPI and Reports no additional gastrointestinal complaints Genitourinary: Genitourinary: Reports no additional female genitourinary complaints and Reports as per HPI Musculoskeletal: Musculoskeletal: Reports no additional musculoskeletal complaints and Reports as per HPI Integumentary/Breasts: Skin/Breast: Reports system reviewed and no additional complaints, except as docu and Reports as per HPI Neurologic: Reports system reviewed and no additional complaints, except as documented and Reports as per HPI Psychiatric: Psychiatric: Reports no additional psychiatric complaints and Reports as per HPI Endocrine: Endocrine: Reports no additional endocrine complaints and Reports as per HPI Hematologic/Lymphatic: Hematologic/Lymphatic: Reports no additional hematologic/lymphatic complaints and Reports as per HPI Allergic/Immunologic: Allergic/Immunologic: Reports no additional allergic/immunologic complaints and Reports as per HPI [facility] Past Medical History Medical History CAD (coronary artery disease) had cath done, no blockages Diabetes Hyperlipidemia Hypertension Hypothyroid Surgical History Surgical History (Updated 02/10/24 @ 07:46 by VICTORINO Bingham) History of bladder surgery History of hysterectomy History of surgery on left wrist History of tubal ligation Status post total right knee replacement Family History Family History Mother Dementia Father Lung cancer Social History Social History Smoking status: Never smoker Second hand tobacco smoke exposure: Yes Alcohol intake: current Drinks per week: 0 Alcohol use details: 1 OR 2 DRINKS PER YEAR Substance use: never Substance use type: does not use Do You Feel Safe in your Home?: Yes Lack of Transportation: No Lack of Food: Never True Current Housing: I Have Housing Concerned About Future Housing: No Difficulty Paying Gas/Electric Bills: No Difficulty Paying for Meds: No Currently Unemployed: No Education: High School Diploma/GED Difficulty w/ Childcare or Family Care: No Living arrangements: with family Additional living arrangements comments: DAUGHTER LIVES WITH PATIENT Occupation/Education: retired Additional occupation/education comments: 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[employer] Gender identity (if verbalized by the patient): Female Spiritual care concerns: No Meds Home Medications and Allergies Home Medications Medication Instructions Recorded Confirmed Type levothyroxine 75 mcg tablet 75 mcg PO DAILY 02/05/20 02/09/24 History metformin 1,000 mg tablet 1,000 mg PO BID 02/05/20 02/02/24 History woxiclrx-njhc-bckk 8 mg-folic 400 1 tablet PO DAILY 02/05/20 02/09/24 History mcg-K 50 mcg-lutein 300 mcg tablet (Centrum Silver Women) pravastatin 40 mg tablet 80 mg PO HS 02/05/20 02/02/24 History alendronate 35 mg tablet 35 mg PO WEEKLY 09/07/23 02/02/24 History dapagliflozin propanediol 10 mg 10 mg PO DAILY 09/07/23 02/02/24 History tablet (Farxiga) glimepiride 2 mg tablet 2 mg PO QAM 09/07/23 02/02/24 History lisinopril 20 mg tablet 20 mg PO DAILY 09/07/23 02/02/24 History magnesium 250 mg tablet 250 mg PO DAILY 09/07/23 02/09/24 History Orogono Collagen 1 tbsp PO BID 01/02/24 02/09/24 History ascorbic acid (vitamin C) 1,000 mg 1 g PO HS 01/02/24 02/09/24 History capsule calcium 600 mg (as 1 tablet PO DAILY 01/02/24 02/09/24 History carbonate)-vitamin D3 5 mcg (200 unit) tablet acetaminophen 325 mg tablet 650 mg PO Q4H #90 tabs 02/10/24 Rx apixaban 2.5 mg tablet (Eliquis) 2.5 mg PO Q12HR #28 tabs 02/10/24 Rx cephalexin 500 mg capsule 500 mg PO Q8H #30 caps 02/10/24 Rx ondansetron 4 mg disintegrating 4 mg PO Q8H PRN nausea and 02/10/24 Rx tablet vomiting #20 tabs oxycodone 5 mg tablet 5 mg PO Q4H PRN Pain Rated 7-10 02/10/24 Rx #40 tabs polyethylene glycol 3350 17 gram 17 g PO QAM #30 ea 02/10/24 Rx oral powder packet (Miralax) sennosides 8.6 mg-docusate sodium 2 tab PO BID #60 tabs 02/10/24 Rx 50 mg tablet (Senokot-S) Allergies Allergy/AdvReac Type Severity Reaction Status Date / Time ibuprofen AdvReac Mild AVOID R/T Verified 02/09/24 06:46 DECREASED KIDNEY FUNCTION Vital Signs Vital Signs - 24 hr 02/09/24 10:55 02/09/24 11:10 02/09/24 11:25 Temperature Pulse Rate 80 85 82 Respiratory Rate 18 18 18 Blood Pressure 134/66 130/66 132/66 Pulse Oximetry 100 96 94 Oxygen Delivery Simple Face Mask Room Air Room Air Oxygen Flow Rate 10 02/09/24 11:39 02/09/24 11:25 02/09/24 12:10 Temperature 96.5 F L 96.3 F L Pulse Rate 80 86 79 Respiratory Rate 16 16 18 Blood Pressure 128/66 138/57 L 129/56 L Pulse Oximetry 94 95 98 Oxygen Delivery Room Air Oxygen Flow Rate 02/09/24 12:40 02/09/24 14:30 02/09/24 20:46 Temperature 96.6 F L 98.4 F Pulse Rate 81 82 Respiratory Rate 18 18 Blood Pressure 126/60 124/65 Pulse Oximetry 98 99 Oxygen Delivery Room Air Oxygen Flow Rate 02/09/24 20:00 02/09/24 23:55 02/10/24 05:31 Temperature 98.2 F 98.4 F Pulse Rate 80 82 Respiratory Rate 16 18 Blood Pressure 124/61 111/60 Pulse Oximetry 100 100 Oxygen Delivery Room Air Oxygen Flow Rate 02/10/24 08:00 02/10/24 10:24 Temperature 97.0 F L Pulse Rate 71 Respiratory Rate 20 Blood Pressure 117/58 L Pulse Oximetry 99 Oxygen Delivery Room Air Oxygen Flow Rate Exam Narrative: General: In no acute distress, well nourished Head: atraumatic, no encephalopathy Eyes: EOMI, PERRLA, sclera clear ENT: moist mucous membranes, nasal passages clear Neck: supple, no JVD, no adenopathy, trachea midline Cardiac: Normal S1 and S2. RRR, No murmur, gallops or friction rubs, peripheral pulses intact. Respiratory: Lungs clear to auscultation, no adventitious lung sounds, currently on room air Gastrointestinal: soft, non-distended, non-tender, normoactive bowel sounds. Reports Nausea and vomiting : voiding without difficulty. Extremities: moves all extremities well, no edema, good ROM, strength 5/5 Skin: warm to the touch, diaphoretic. Right knee OR dressing clean,dry and intact. Surgical incision to right knee with internal sutures and surgical glue Neuro: Alert and oriented x4, cranial nerves intact, no neuro deficits. Psych: normal mood, normal affect, interactive Results Labs 02/10/24 06:23 02/10/24 06:23 Labs: Short CBC 02/10/24 Range/Units 06:23 WBC 10.6 H (4.5-10.0) K/mm3 Hgb 11.8 L (12.0-15.0) g/dL Hct 38.1 (37.0-47.0) % Plt Count 190 (150-375) k/mm3 BMP 02/09/24 02/10/24 12:33 06:23 Sodium 135 L Potassium 4.9 Chloride 103 Carbon Dioxide 24 BUN 22 H Creatinine 1.30 H 1.30 H Glucose 129 H Calcium 8.6 Liver Function 02/10/24 Range/Units 06:23 Total Bilirubin 0.5 (0.2-1.3) mg/dL AST 27 (14-36) U/L ALT 16 (6-35) U/L Alkaline Phosphatase 65 (38-126) U/L Albumin 4.1 (3.5-5.1) g/dL Quality VTE Prophylaxis VTE prophylaxis: mechanical ordered
[2024-02-10 11:48] LABS: Glucose Point of Care 229 mg/dl (65-105)
== END 2024-02-10 12:25 | disposition home or self-care (01) ==
LOC: ANHSURGERY 05:38 → ANH3MEDSUR 11:49
PROVIDERS: Nurse Practitioner Acute Care; Physician Assistant Surgical; PCP Internal Medicine; Visit Provider Orthopaedic Surgery
PROC: (CPT 27447; principal; 2024-02-09 07:30)
DX: M17.11 Unilateral primary osteoarthritis, right knee (principal); M94.261 Chondromalacia, right knee; E11.9 Type 2 diabetes mellitus without complications; E03.9 Hypothyroidism, unspecified; I12.9 Hypertensive chronic kidney disease with stage 1 through stage 4 chronic kidney disease, or unspecified chronic kidney disease; N18.9 Chronic kidney disease, unspecified; E78.5 Hyperlipidemia, unspecified; I25.10 Atherosclerotic heart disease of native coronary artery without angina pectoris; Z79.84 Long term (current) use of oral hypoglycemic drugs; Z79.83 Long term (current) use of bisphosphonates; Z98.890 Other specified postprocedural states; Z98.51 Tubal ligation status; Z80.1 Family history of malignant neoplasm of trachea, bronchus and lung
CPT/HCPCS: 27447; 36415; 73560; 80053; 82565; 82948; 84443; 85025; 97110; 97116; 97161; 97165; 97530; 97535; A9270; C1713; C1776; J0171; J0690; J1100; J1815; J2003; J2270; J2405; J2704; J2795; J3010; J3370; J7030; J7120